=== PATIENT | male | born 1990 ===

== ENCOUNTER 2023-09-20 15:17 | Inpatient (IN) ==
[2023-09-20 16:28] LABS: ABS Eosinophils 0.1 10^3/uL (0.0-0.5); ABS Lymphocytes 2.1 10^3/uL (1.0-4.8); ABS Monocytes 0.8 10^3/uL (0.0-1.1); ABS Neutrophils 4.6 10^3/uL (1.5-7.6); ABS Nucleated RBC 0.01 10^3/ul; Eosinophil % 0.9 %; Hemoglobin 15.3 g/dL (13.2-16.3); Lymphocyte % 27.3 %; Mean Corpuscular Hemoglobin 31.5 pg (27-33); Mean Corpuscular Hgb Conc 34.7 g/dL (31-36); Mean Corpuscular Volume 90.7 fL (80-97); Mean Platelet Volume 8.3 fL (7.5-11.2); Nucleated Red Blood Cells % 0.1 %/100WBC (0.0-0.8); Platelet Count 407 10^3/uL (150-450); Red Blood Count 4.85 10^6/uL (4.06-5.63); Red Cell Distribution Width 13.9 % (12-17); White Blood Count 7.6 10^3/uL (3.6-10.2)
[2023-09-20 17:04] LABS: ALT 31 U/L (7-52); Albumin 4.3 g/dL (3.2-5.2); Alkaline Phosphatase 65 U/L (35-149); Blood Urea Nitrogen 19 mg/dL (6-24); CO2 Carbon Dioxide 30 mmol/L (22-32); Calcium 9.1 mg/dL (8.6-10.3); Chloride 104 mmol/L (101-111); Creatinine, Serum 0.68 mg/dL (0.67-1.17); Glucose 121 mg/dL (70-100); Sodium 139 mmol/L (135-145); eGFR CKD-EPI 125.9 (>60)
[2023-09-20 17:09] LABS: TSH Ultra Thyroid Stim Horm 1.06 mcIU/mL (0.34-5.60)
[2023-09-20 18:14] LABS: Urine Appearance Turbid; Urine Bilirubin Negative (Negative); Urine Blood Negative (Negative); Urine Color Light-Yellow; Urine Glucose Negative (Negative); Urine Ketones Negative (Negative); Urine Nitrite Negative (Negative); Urine Protein Negative (Negative); Urine Specific Gravity 1.013 (1.002-1.030); Urine Urobilinogen Negative (Negative)
[2023-09-20 18:24] LABS: Urine Bacteria Absent /HPF (Absent); Urine Red Blood Cell 1+(3-5/hpf) /HPF (0-Trace); Urine Squamous Epithelial Cell Present /HPF (Absent); Urine White Blood Cell Trace(0-5/hpf) /HPF (0-Trace)
[2023-09-20 18:44] LABS: Urine Benzodiazepine Screen None Detected (None Detect); Urine Cannabinoids Screen None Detected (None Detect); Urine Opiates Screen None Detected (None Detect)
[2023-09-20 19:17] LABS: Urine Buprenorphine Screen None Detected (None Detect); Urine Fentanyl Screen None Detected (None Detect); Urine Hydrocodone Screen None Detected (None Detect)
[2023-09-20 19:19] LABS: AST 21 U/L (13-39); Albumin/Globulin Ratio 1.2 (1-3); Anion Gap 5 mmol/L (2-16); Globulin 3.6 g/dL (2-4); Potassium 4.1 mmol/L (3.5-5.0); Total Bilirubin 0.4 mg/dL (0.2-1.0); Total Protein 7.9 g/dL (6.4-8.9)
[2023-09-20 20:00] LABS: Acetaminophen < 15 mcg/mL; Alcohol, S < 13 mg/dL (<13); Salicylate < 2.50 mg/dL (<30)
[2023-09-21] MEDS: NS 0.9% 1000 ml BAG 1,000 ML IV ONE (00:24)
[2023-09-21] MEDS: Haloperidol 5 mg/ml SDV IV/IM 5 MG/ML AMP IM ONE (00:25)
[2023-09-21] MEDS ORDERED: diphenhydraMINE PO* 50 MG Q8H PRN PO (00:52)
[2023-09-21] MEDS ORDERED: Al Hydrox/Mg Hydrox/Simet LIQ 30 ML UDC PO PRN (00:52)
[2023-09-21] MEDS ORDERED: Nicotine GUM 2MG FRUIT FLAVOR PO PRN (01:00)
[2023-09-21] MEDS: Vitamin THERAPEUTIC TAB PO SCH (09:33)
[2023-09-25 08:48] VITALS: BP 129/72
== END 2023-09-25 10:35 | DRG 885 ==
LOC: ED 15:17 → EDHOLD 09-21 00:09 → BSU 09-21 00:30
PROVIDERS: ADMIT Psychiatry & Neurology Addiction Psychiatry; ATTEND Psychiatry & Neurology Psychiatry